=== PATIENT | female | born 1990 | race Asian ===

== ENCOUNTER 2022-04-26 09:34 | Inpatient (IN) ==
[2022-04-26] MEDS ORDERED: LIDOCAINE 1% LOCAL 20 ML VIAL INFIL PRN (09:58)
[2022-04-26] MEDS ORDERED: OXYTOCIN 30 UNITS/500 ML BAG IV PRN ×2 (09:58→10:00)
--- NOTE | 2022-04-26 10:09 | History & Physical Report ---
Date of Service April 26, 2022 Assessment & Plan (1) Spontaneous rupture of amniotic membranes: Plan: 32-year-old G1, P0 at 37 weeks of gestation with spontaneous rupture of membranes, Vital signs stable afebrile, heart rate reassuring, GBS negative, Early labor with mild irregular contractions, Discussed the findings and recommended induction/augmentation of labor at term with rupture of membranes, Discussed oxytocin and how to use it in details. She understood all and agreed with plan. All questions were answered. History of Present Illness Chief Complaint: Leaking fluids Primary Care Provider: NO PCP Patient is a 32-year-old G1, P0 at 37 weeks of gestation who felt a gush of fluid leakage around 7:30 AM followed by repeating fluids on the floor. It has been clear fluids. Patient had contractions yesterday but she does not feel them today. She denies contractions, abdominal pain, vaginal bleeding, fever chills, nausea vomiting, headaches or change in her vision. She reports good movements. Her has been uncomplicated. She started her care here then visited [place] and [place] and came back. GBS is negative Allergies Allergy/AdvReac Type Severity Reaction Status Date / Time No Known Allergies Allergy Verified 10/05/21 13:35 Home Medications Medication Instructions Recorded Confirmed Type prenat.vits,liset,zhv-wehv-oktbg 1 tab PO DAILY 10/05/21 10/05/21 History Patient History Surgical History S/P knee surgery Family History Mother Diabetes Hypertension Grandfather (Maternal) Diabetes Denies family history of Ovarian cancer Prostate cancer Myocardial infarction Breast cancer Colorectal cancer Social History Smoking Status: Never smoker Second Hand Exposure: No; Tobacco Cessation Education Requested by Patient: No Hx Alcohol Use: No Hx Substance Use: No Preferred Language: Mandarin Croatian Communication Ability: Effective Communication Tools: IPad Hearing Ability: Normal Transverse Abdominal Muscle Nurse Required: Yes Beliefs That Will Affect Care: None marital status: Current Living Situation: Spouse Current Living Situation Comment: Lives with Tani current occupational status: employed current occupation: [employer] Feels Safe at Home: Yes Safety Concerns: Feels Safe At This Time Childhood Exposure to Second-Hand Smoke: Yes Diet Comment: warm liquids Dental Care, Regularly: Yes Physical Activity Frequency: 3-4 Times per Week Seatbelt Use: always Sunscreen Use: Yes Gender Identity: Female Review of Systems as per Subjective / HPI Physical Exam Constitutional: WD/WN, vitals as above well developed, well nourished and comfortable Gastrointestinal (Abdomen): normal bowel sounds, soft, nontender, no hepatosplenomegaly (Gravid, [place] 7 lb) Genitourinary: normal external appearance (grossly ruptured, Nitrazine +) OB Exam Abdomen: + vertex Manual OB Exam: + cervical dilation 2 cm, + cervical effacement 30% and + station -2 OB Exam Monitor Tracing: + external FHT monitor used, + external uterine monitor used and + category I Results & Data ([facility]) Vital Signs (Past 12 Hours) Vital Signs Temp Pulse Resp BP 04/26/22 09:57 37 C 75 20 112/65
[2022-04-26 10:38] LABS: Hematocrit (blood only) 34.5 % (34.1-44.9); Hemoglobin 12.1 g/dl (12.0-16.0); Mean Corpuscular Hemoglobin 31.6 pg (25.0-34.0); Mean Corpuscular Hgb Conc 35.1 g/dL (32.0-36.0); Mean Corpuscular Volume 90.1 fL (80.0-100.0); Mean Platelet Volume 9.6 fL (9.4-12.3); Platelet Count 249 K/uL (130-400); RDW Coefficient of Variation 12.1 % (11.5-14.5); RDW Standard Deviation 39.4 fL (36.4-46.3); Red Blood Count 3.83 M/uL (3.93-5.22); White Blood Count 6.98 K/ul (4.8-10.8)
[2022-04-26] MEDS: LACTATED RINGER'S 1,000 ML IV PRN ×3 (11:14→19:12)
[2022-04-26] MEDS ORDERED: OR MISCELLANEOUS MED ONE (14:55)
--- NOTE | 2022-04-26 15:41 | Obstetrical Progress Note ---
Date of Service April 26, 2022 Assessment & Plan Admission and Anticipated Discharge Date Admission Date: April 26, 2022 Subjective Patient is reevaluated. She is sitting on bal. Reviewed her plan. VSS Afebrile FHR categ I [place] ctxs q 1-3 min, pitocin is at 16 miu/min VE; 3-4 cm/ 50%/ -2, small caput Patient desires epidural now. Discussed what to expect. All questions were answered. Continue to monitor closely Results & Data ([facility]) Vital Signs (Past 12 Hours) Vital Signs Temp Pulse Resp BP 04/26/22 11:37 20 04/26/22 14:02 36.8 C 81 20 99/58 L 04/26/22 13:15 36.8 C 88 20 107/56 L 04/26/22 12:56 91 H 109/61 04/26/22 12:41 105 H 113/64 04/26/22 12:27 100 H 114/70 04/26/22 12:12 78 109/58 L 04/26/22 11:56 85 116/63 04/26/22 11:41 91 H 102/59 L 04/26/22 11:26 66 20 104/61 04/26/22 09:57 37 C 75 20 112/65
[2022-04-26] MEDS: INSULIN ASPART PER UNIT SC SCH ×8 (15:45→23:14)
[2022-04-26] MEDS ORDERED: SODIUM CHLORIDE 0.9% INJ 10 ML VIAL ONE (15:50)
[2022-04-26] MEDS ORDERED: ePHEDrine sulfate 50 MG/ML AMP ONE (15:50)
[2022-04-26] MEDS ORDERED: fentaNYL citrate 100 MCG/2 ML VIAL ONE (15:50)
[2022-04-26] MEDS ORDERED: fentaNYL 2MCG/ML ROPIVACAINE 1.25MG/ML 100 ML BAG EPI ONE (15:51)
[2022-04-26] MEDS ORDERED: BUPIVACAINE 0.25% 30 ML VIAL ONE (15:51)
[2022-04-26] MEDS ORDERED: LIDOCAINE 2%/EPINEPHRINE 1:200,000 20 ML SDV ONE (15:51)
--- NOTE | 2022-04-26 16:01 | Anesthesiology Consultation ---
Date of Service April 26, 2022 Assessment & Plan (1) Spontaneous rupture of amniotic membranes: (2) Encounter for pre-operative examination: Chart Review Chart Review: Acceptable Risk for Labor Epidural History Height/Weight Height: 5 ft 3 in Weight: 76.657 kg Allergies Allergy/AdvReac Type Severity Reaction Status Date / Time No Known Allergies Allergy Verified 10/05/21 13:35 Medications Home Medications Medication Instructions Recorded Confirmed Last Taken prenat.vits,liset,uhi-vrbo-tizap 1 tab PO DAILY 10/05/21 04/26/22 04/25/22 08:00 calcium carbonate 600 mg-vitamin 1 tab PO DAILY 04/26/22 04/26/22 04/25/22 08:00 D3 5 mcg (200 unit) tablet cholecalciferol (vitamin D3) 25 25 mcg PO DAILY 04/26/22 04/26/22 04/25/22 08:00 mcg (1,000 unit) capsule (Vitamin D3) insulin NPH isoph U-100 human 100 15 unit subcut HS 04/26/22 04/26/22 04/25/22 23:30 unit/mL (3 mL) subcutaneous pen (Novolin N Flexpen) omega 1-rqz-pei-fish oil 300 1 cap PO DAILY 04/26/22 04/26/22 04/25/22 08:00 mg-1,000 mg capsule (Fish Oil) Active Medications Generic Name Dose Route Start Last Admin Trade Name Freq PRN Reason Stop Dose Admin Lactated Ringer's 1,000 mls @ 150 mls/hr 04/26/22 09:58 04/26/22 15:52 Lr IV 04/28/22 09:57 999 mls/hr .[id number] PRN Administration L&D Protocol Protocol Oxytocin 30 units in 500 mls @ 16 mls/hr 04/26/22 10:00 04/26/22 15:00 Pitocin IV 04/28/22 09:59 0.96 units/hr .Q24H PRN 16 mls/hr Labor Induction/Augmentation Titration Protocol 0.96 UNITS/HR Insulin Aspart 0 units 04/26/22 16:00 04/26/22 15:45 Insulin Aspart Per Unit SC 05/26/22 15:59 4 units Q1H RULA Administration Past Medical History Medical History (Updated 04/26/22 @ 16:01 by Denny Peters MD) Spontaneous rupture of amniotic membranes Past Family History Family History Mother Diabetes Hypertension Grandfather (Maternal) Diabetes Denies family history of Ovarian cancer Prostate cancer Myocardial infarction Breast cancer Colorectal cancer Past Surgical History Surgical History S/P knee surgery Cut knee skiiing Social History Smoking Status: Never smoker Hx Alcohol Use: No Hx Substance Use: No substance use type: does not use Physical Exam Vital Signs Last Vital Signs Temp 36.8 C 04/26/22 14:02 Pulse 81 04/26/22 14:02 Resp 20 04/26/22 14:02 BP 99/58 L 04/26/22 14:02 Testing Laboratory Results 04/26/22 10:10 04/26/22 14:50 POC Glucose 155 H
[2022-04-26] MEDS ORDERED: NALOXONE HCL 0.4 MG/1 ML VIAL/CARP IV PRN (16:40)
[2022-04-26] MEDS ORDERED: ONDANSETRON INJ 2 MG/ML 2 ML VIAL IV PRN (16:40)
[2022-04-26] MEDS ORDERED: NALOXONE HCL 1 MG in SODIUM CHLORIDE 0.9% 1000ML 1,000 ML IV PRN (16:40)
[2022-04-26] MEDS ORDERED: ePHEDrine sulfate 50 MG/ML AMP IV PRN (16:40)
--- NOTE | 2022-04-26 18:30 | Obstetrical Progress Note ---
Date of Service April 26, 2022 Assessment & Plan Admission and Anticipated Discharge Date Admission Date: April 26, 2022 Subjective Patient is reevaluated. She is comfortable now, received epidural for pain. VSS Afebrile FHR categ I VE: 4/ 70%/-1, coned head, minimal change Contractions q 2-4 min Plan to continue to monitor, increase the pitocin as needed, change position with peanut ball. Results & Data ([facility]) Vital Signs (Past 12 Hours) Vital Signs Temp Pulse Resp BP Pulse Ox 04/26/22 11:37 20 04/26/22 18:25 65 99 04/26/22 18:23 62 98/63 L 04/26/22 18:20 66 99 04/26/22 18:15 77 100 04/26/22 18:10 72 100/65 99 04/26/22 18:05 61 99 04/26/22 18:00 68 99 04/26/22 17:55 36.8 C 78 20 99 04/26/22 17:53 80 99/51 L 04/26/22 17:50 59 L 98 04/26/22 17:45 57 L 99 04/26/22 17:40 73 98 04/26/22 17:39 74 106/56 L 04/26/22 17:35 71 98 04/26/22 17:30 66 98 04/26/22 17:25 78 97 04/26/22 17:20 70 98 04/26/22 17:15 79 97 04/26/22 17:11 66 106/55 L 04/26/22 17:10 64 98 04/26/22 17:05 76 98 04/26/22 17:00 68 96 04/26/22 16:55 69 97 04/26/22 16:53 70 101/57 L 04/26/22 16:50 76 97 04/26/22 16:51 73 95/51 L 04/26/22 16:49 74 100/59 L 04/26/22 16:47 73 97/54 L 04/26/22 16:45 98 04/26/22 16:45 73 04/26/22 16:45 76 95/55 L 04/26/22 16:43 64 94/55 L 04/26/22 16:41 75 100/59 L 04/26/22 16:40 73 98 04/26/22 16:39 69 99/58 L 04/26/22 16:37 64 98/58 L 04/26/22 16:35 65 16 99/57 L 98 04/26/22 16:33 65 125/58 L 04/26/22 16:32 76 132/70 04/26/22 16:30 79 97 04/26/22 16:25 80 99 04/26/22 16:20 71 99 04/26/22 16:00 36.9 C 75 20 105/71 04/26/22 14:02 36.8 C 81 20 99/58 L 04/26/22 13:15 36.8 C 88 20 107/56 L 04/26/22 12:56 91 H 109/61 04/26/22 12:41 105 H 113/64 04/26/22 12:27 100 H 114/70 04/26/22 12:12 78 109/58 L 04/26/22 11:56 85 116/63 04/26/22 11:41 91 H 102/59 L 04/26/22 11:26 66 20 104/61 04/26/22 09:57 37 C 75 20 112/65
[2022-04-26] MEDS: ceFAZolin 2000MG 2,000 MG/15 ML SYR IV SCH (18:49)
[2022-04-26] MEDS: CLINDAMYCIN/D5W 900 MG/50 ML BAG IV SCH (19:38)
--- NOTE | 2022-04-26 20:40 | Obstetrical Progress Note ---
Date of Service April 26, 2022 Assessment & Plan Admission and Anticipated Discharge Date Admission Date: April 26, 2022 Subjective Patient is related. heart rate had deceleration and recovered to regular baseline with good Ativan strips after position change. She is still comfortable, no pain or pressure. Vaginal exam, cervix is 5 cm dilated, 70% effaced head is at -1 station with cone shape, suspected OP, IUPC is placed on Bedside ultrasound performed direct OP, baby is back is on the mother's posterior uterus, Will change position to left lateral side and peanut ball, Discussed the findings with the patient, All questions were answered, Continue to monitor. Results & Data ([facility]) Vital Signs (Past 12 Hours) Vital Signs Temp Pulse Resp BP Pulse Ox 04/26/22 11:37 20 04/26/22 20:35 78 98 04/26/22 20:30 68 98 04/26/22 20:25 73 99 04/26/22 20:23 64 109/57 L 04/26/22 20:20 63 97 04/26/22 20:15 68 98 04/26/22 20:10 86 99 04/26/22 20:09 71 109/71 04/26/22 20:00 18 04/26/22 20:00 18 04/26/22 20:05 70 99 04/26/22 20:00 76 99 04/26/22 19:55 70 99 04/26/22 19:54 69 101/57 L 04/26/22 19:50 65 98 04/26/22 19:45 75 99 04/26/22 19:40 66 98 04/26/22 19:39 60 100/57 L 04/26/22 19:37 61 111/67 04/26/22 19:35 64 98 04/26/22 19:30 70 97 04/26/22 19:29 56 L 95/53 L 04/26/22 19:25 69 94/53 L 99 04/26/22 19:20 66 99 04/26/22 19:15 36.7 C 67 18 99 04/26/22 19:10 77 93/56 L 100 04/26/22 19:05 70 99 04/26/22 19:00 65 99 04/26/22 18:55 62 100 04/26/22 18:53 70 104/58 L 04/26/22 18:50 68 100 04/26/22 18:45 71 99 04/26/22 18:40 66 99 04/26/22 18:39 64 101/56 L 04/26/22 18:35 36.7 C 68 20 99 04/26/22 18:30 68 100 04/26/22 18:25 65 99 04/26/22 18:23 62 98/63 L 04/26/22 18:20 66 99 04/26/22 18:15 77 100 04/26/22 18:10 72 100/65 99 04/26/22 18:05 61 99 04/26/22 18:00 68 99 04/26/22 17:55 36.8 C 78 20 99 04/26/22 17:53 80 99/51 L 04/26/22 17:50 59 L 98 04/26/22 17:45 57 L 99 04/26/22 17:40 73 98 04/26/22 17:39 74 106/56 L 04/26/22 17:35 71 98 04/26/22 17:30 66 98 04/26/22 17:25 78 97 04/26/22 17:20 70 98 04/26/22 17:15 79 97 04/26/22 17:11 66 106/55 L 04/26/22 17:10 64 98 04/26/22 17:05 76 98 04/26/22 17:00 68 96 04/26/22 16:55 69 97 04/26/22 16:53 70 101/57 L 04/26/22 16:50 76 97 04/26/22 16:51 73 95/51 L 04/26/22 16:49 74 100/59 L 04/26/22 16:47 73 97/54 L 04/26/22 16:45 98 04/26/22 16:45 73 04/26/22 16:45 76 95/55 L 04/26/22 16:43 64 94/55 L 04/26/22 16:41 75 100/59 L 04/26/22 16:40 73 98 04/26/22 16:39 69 99/58 L 04/26/22 16:37 64 98/58 L 04/26/22 16:35 65 16 99/57 L 98 04/26/22 16:33 65 125/58 L 04/26/22 16:32 76 132/70 04/26/22 16:30 79 97 04/26/22 16:25 80 99 04/26/22 16:20 71 99 04/26/22 16:00 36.9 C 75 20 105/71 04/26/22 14:02 36.8 C 81 20 99/58 L 04/26/22 13:15 36.8 C 88 20 107/56 L 04/26/22 12:56 91 H 109/61 04/26/22 12:41 105 H 113/64 04/26/22 12:27 100 H 114/70 04/26/22 12:12 78 109/58 L 04/26/22 11:56 85 116/63 04/26/22 11:41 91 H 102/59 L 04/26/22 11:26 66 20 104/61 04/26/22 09:57 37 C 75 20 112/65
--- NOTE | 2022-04-26 22:28 | Obstetrical Progress Note ---
Date of Service April 26, 2022 Assessment & Plan Admission and Anticipated Discharge Date Admission Date: April 26, 2022 Subjective Patient has bloody show VSS Afebrile On IV Cefazolin and Clindamycin VE; 6/ 80%/ 0, coned head, FHR categ I Ctxs q 2-3 min, Pitocin is at 28 miu/ min IUPC is removed Protracted labor with reassuring maternal and status Continue to monitor closely Results & Data ([facility]) Vital Signs (Past 12 Hours) Vital Signs Temp Pulse Resp BP Pulse Ox 04/26/22 11:37 20 04/26/22 22:25 66 114/64 04/26/22 22:20 68 99 04/26/22 22:15 74 98 04/26/22 22:10 76 99 04/26/22 22:09 72 96/53 L 04/26/22 22:05 66 99 04/26/22 22:00 75 99 04/26/22 21:55 67 100 04/26/22 21:53 66 103/53 L 04/26/22 21:50 76 100 04/26/22 21:45 71 99 04/26/22 21:40 66 99 04/26/22 21:41 70 101/56 L 04/26/22 21:35 73 100 04/26/22 21:30 76 98 04/26/22 21:25 68 108/61 98 04/26/22 21:20 68 99 04/26/22 21:15 73 99 04/26/22 21:10 72 98 04/26/22 21:09 69 98/54 L 04/26/22 21:05 37.1 C 67 18 99 04/26/22 21:00 76 99 04/26/22 20:55 75 100 04/26/22 20:53 94/61 L 04/26/22 20:00 18 04/26/22 20:00 18 04/26/22 20:50 73 99 04/26/22 20:45 84 98 04/26/22 20:40 99 04/26/22 20:40 71 04/26/22 20:40 71 109/59 L 04/26/22 20:35 78 98 04/26/22 20:30 68 98 04/26/22 20:25 73 99 04/26/22 20:23 64 109/57 L 04/26/22 20:20 63 97 04/26/22 20:15 68 98 04/26/22 20:10 86 99 04/26/22 20:09 71 109/71 04/26/22 20:00 18 04/26/22 20:00 18 04/26/22 20:05 70 99 04/26/22 20:00 76 99 04/26/22 19:55 70 99 04/26/22 19:54 69 101/57 L 04/26/22 19:50 65 98 04/26/22 19:45 75 99 04/26/22 19:40 66 98 04/26/22 19:39 60 100/57 L 04/26/22 19:37 61 111/67 04/26/22 19:35 64 98 04/26/22 19:30 70 97 04/26/22 19:29 56 L 95/53 L 04/26/22 19:25 69 94/53 L 99 04/26/22 19:20 66 99 04/26/22 19:15 36.7 C 67 18 99 04/26/22 19:10 77 93/56 L 100 04/26/22 19:05 70 99 04/26/22 19:00 65 99 04/26/22 18:55 62 100 04/26/22 18:53 70 104/58 L 04/26/22 18:50 68 100 04/26/22 18:45 71 99 04/26/22 18:40 66 99 04/26/22 18:39 64 101/56 L 04/26/22 18:35 36.7 C 68 20 99 04/26/22 18:30 68 100 04/26/22 18:25 65 99 04/26/22 18:23 62 98/63 L 04/26/22 18:20 66 99 04/26/22 18:15 77 100 04/26/22 18:10 72 100/65 99 04/26/22 18:05 61 99 04/26/22 18:00 68 99 04/26/22 17:55 36.8 C 78 20 99 04/26/22 17:53 80 99/51 L 04/26/22 17:50 59 L 98 04/26/22 17:45 57 L 99 04/26/22 17:40 73 98 04/26/22 17:39 74 106/56 L 04/26/22 17:35 71 98 04/26/22 17:30 66 98 04/26/22 17:25 78 97 04/26/22 17:20 70 98 04/26/22 17:15 79 97 04/26/22 17:11 66 106/55 L 04/26/22 17:10 64 98 04/26/22 17:05 76 98 04/26/22 17:00 68 96 04/26/22 16:55 69 97 04/26/22 16:53 70 101/57 L 04/26/22 16:50 76 97 04/26/22 16:51 73 95/51 L 04/26/22 16:49 74 100/59 L 04/26/22 16:47 73 97/54 L 04/26/22 16:45 98 04/26/22 16:45 73 04/26/22 16:45 76 95/55 L 04/26/22 16:43 64 94/55 L 04/26/22 16:41 75 100/59 L 04/26/22 16:40 73 98 04/26/22 16:39 69 99/58 L 04/26/22 16:37 64 98/58 L 04/26/22 16:35 65 16 99/57 L 98 04/26/22 16:33 65 125/58 L 04/26/22 16:32 76 132/70 04/26/22 16:30 79 97 04/26/22 16:25 80 99 04/26/22 16:20 71 99 04/26/22 16:00 36.9 C 75 20 105/71 04/26/22 14:02 36.8 C 81 20 99/58 L 04/26/22 13:15 36.8 C 88 20 107/56 L 04/26/22 12:56 91 H 109/61 04/26/22 12:41 105 H 113/64 04/26/22 12:27 100 H 114/70 04/26/22 12:12 78 109/58 L 04/26/22 11:56 85 116/63 04/26/22 11:41 91 H 102/59 L 04/26/22 11:26 66 20 104/61
[2022-04-27] MEDS: INSULIN ASPART PER UNIT SC SCH ×15 (00:21→16:33)
[2022-04-27] MEDS ORDERED: OR MISCELLANEOUS MED ONE (01:07)
[2022-04-27] MEDS ORDERED: OXYTOCIN 30 UNITS/500 ML BAG IV PRN ×2 (01:12→15:47)
--- NOTE | 2022-04-27 01:12 | Obstetrical Progress Note ---
Date of Service April 27, 2022 Assessment & Plan Admission and Anticipated Discharge Date Admission Date: April 26, 2022 Subjective Patient is reevaluated. She is still comfortable does not have any pain, discomfort, nor pressure. She and her showed me her work plan second time, printed from computer this time. Directed avoid delivery if possible, avoid episiotomy, delayed cord clamping for 10 minutes, ocal-rs-ffxr contact soon after delivery, and multiple references for /pediatric care. Vital signs stable afebrile, heart rate category 1 with occasional early D cells with quick recovery and moderate variability and good accelerations. [place] with contractions every 1 to 2 minutes, Vaginal exam, cervix is 7 cm dilated, 80% effaced and head is coned but it is +1 station, still OP. Oxytocin is at 28 mIU/min. Patient has slow progress, protracted labor, reassuring heart rate and maternal status, Discussed option of giving uterine muscle rest with holding off the oxytocin for about an hour, and then restart from the beginning. Patient agrees and will desires to rest and sleep. All questions were answered. Results & Data ([facility]) Vital Signs (Past 12 Hours) Vital Signs Temp Pulse Resp BP Pulse Ox 04/27/22 01:05 67 98 04/27/22 01:00 77 98 04/27/22 00:55 78 96 04/27/22 00:54 85 131/62 04/27/22 00:50 71 97 04/27/22 00:45 75 97 04/27/22 00:40 77 97 04/27/22 00:38 75 126/67 04/27/22 00:35 80 97 04/27/22 00:30 74 16 97 04/27/22 00:25 75 132/71 98 04/27/22 00:20 83 98 04/27/22 00:15 71 99 04/27/22 00:10 79 96/52 L 98 04/27/22 00:05 76 98 04/27/22 00:00 97 04/27/22 00:00 78 04/27/22 00:01 76 87/51 L 04/27/22 00:00 83 85/48 L 04/26/22 23:55 80 98 04/26/22 23:53 80 81/45 L 04/26/22 23:50 72 97 04/26/22 23:45 72 98 04/26/22 23:40 76 97/53 L 98 04/26/22 23:35 68 98 04/26/22 23:30 78 18 98 04/26/22 23:25 79 98 04/26/22 23:26 80 153/58 H 04/26/22 23:20 89 98 04/26/22 23:15 75 98 04/26/22 23:10 18 04/26/22 23:10 37.1 C 18 04/26/22 23:10 98 04/26/22 23:10 76 04/26/22 23:10 78 120/78 04/26/22 23:05 76 98 04/26/22 23:00 79 98 04/26/22 22:55 95 04/26/22 22:55 87 04/26/22 22:55 89 118/64 04/26/22 22:50 79 98 04/26/22 22:45 73 99 04/26/22 22:40 68 99 04/26/22 22:39 69 110/60 04/26/22 22:35 78 98 04/26/22 22:00 18 04/26/22 22:00 18 04/26/22 22:30 65 98 04/26/22 22:25 99 04/26/22 22:25 80 04/26/22 22:25 66 114/64 04/26/22 22:20 68 99 04/26/22 22:15 74 98 04/26/22 22:10 76 99 04/26/22 22:09 72 96/53 L 04/26/22 22:05 66 99 04/26/22 22:00 75 99 04/26/22 21:55 67 100 04/26/22 21:53 66 103/53 L 04/26/22 21:50 76 100 04/26/22 21:45 71 99 04/26/22 21:40 66 99 04/26/22 21:41 70 101/56 L 04/26/22 21:35 73 100 04/26/22 21:30 76 98 04/26/22 21:25 68 108/61 98 04/26/22 21:20 68 99 04/26/22 21:15 73 99 04/26/22 21:10 72 98 04/26/22 21:09 69 98/54 L 04/26/22 21:05 37.1 C 67 18 99 04/26/22 21:00 76 99 04/26/22 20:55 75 100 04/26/22 20:53 94/61 L 04/26/22 20:00 18 04/26/22 20:00 18 04/26/22 20:50 73 99 04/26/22 20:45 84 98 04/26/22 20:40 99 04/26/22 20:40 71 04/26/22 20:40 71 109/59 L 04/26/22 20:35 78 98 04/26/22 20:30 68 98 04/26/22 20:25 73 99 04/26/22 20:23 64 109/57 L 04/26/22 20:20 63 97 04/26/22 20:15 68 98 04/26/22 20:10 86 99 04/26/22 20:09 71 109/71 04/26/22 20:00 18 04/26/22 20:00 18 04/26/22 20:05 70 99 04/26/22 20:00 76 99 04/26/22 19:55 70 99 04/26/22 19:54 69 101/57 L 04/26/22 19:50 65 98 04/26/22 19:45 75 99 04/26/22 19:40 66 98 04/26/22 19:39 60 100/57 L 04/26/22 19:37 61 111/67 04/26/22 19:35 64 98 04/26/22 19:30 70 97 04/26/22 19:29 56 L 95/53 L 04/26/22 19:25 69 94/53 L 99 04/26/22 19:20 66 99 04/26/22 19:15 36.7 C 67 18 99 04/26/22 19:10 77 93/56 L 100 04/26/22 19:05 70 99 04/26/22 19:00 65 99 04/26/22 18:55 62 100 04/26/22 18:53 70 104/58 L 04/26/22 18:50 68 100 04/26/22 18:45 71 99 04/26/22 18:40 66 99 04/26/22 18:39 64 101/56 L 04/26/22 18:35 36.7 C 68 20 99 04/26/22 18:30 68 100 04/26/22 18:25 65 99 04/26/22 18:23 62 98/63 L 04/26/22 18:20 66 99 04/26/22 18:15 77 100 04/26/22 18:10 72 100/65 99 04/26/22 18:05 61 99 04/26/22 18:00 68 99 04/26/22 17:55 36.8 C 78 20 99 04/26/22 17:53 80 99/51 L 04/26/22 17:50 59 L 98 04/26/22 17:45 57 L 99 04/26/22 17:40 73 98 04/26/22 17:39 74 106/56 L 04/26/22 17:35 71 98 04/26/22 17:30 66 98 04/26/22 17:25 78 97 04/26/22 17:20 70 98 04/26/22 17:15 79 97 04/26/22 17:11 66 106/55 L 04/26/22 17:10 64 98 04/26/22 17:05 76 98 04/26/22 17:00 68 96 04/26/22 16:55 69 97 04/26/22 16:53 70 101/57 L 04/26/22 16:50 76 97 04/26/22 16:51 73 95/51 L 04/26/22 16:49 74 100/59 L 04/26/22 16:47 73 97/54 L 04/26/22 16:45 98 04/26/22 16:45 73 04/26/22 16:45 76 95/55 L 04/26/22 16:43 64 94/55 L 04/26/22 16:41 75 100/59 L 04/26/22 16:40 73 98 04/26/22 16:39 69 99/58 L 04/26/22 16:37 64 98/58 L 04/26/22 16:35 65 16 99/57 L 98 04/26/22 16:33 65 125/58 L 04/26/22 16:32 76 132/70 04/26/22 16:30 79 97 04/26/22 16:25 80 99 04/26/22 16:20 71 99 04/26/22 16:00 36.9 C 75 20 105/71 04/26/22 14:02 36.8 C 81 20 99/58 L 04/26/22 13:15 36.8 C 88 20 107/56 L
[2022-04-27] MEDS: fentaNYL 2MCG/ML ROPIVACAINE 1.25MG/ML 100 ML BAG EPI PRN ×2 (01:59→09:07)
[2022-04-27] MEDS: LACTATED RINGER'S 1,000 ML IV PRN ×2 (02:03→09:30)
[2022-04-27] MEDS: ceFAZolin 2000MG 2,000 MG/15 ML SYR IV SCH ×2 (03:03→11:04)
[2022-04-27] MEDS: CLINDAMYCIN/D5W 900 MG/50 ML BAG IV SCH ×2 (03:03→11:24)
--- NOTE | 2022-04-27 10:17 | Labor Progress Brief Note ---
Date of Service April 27, 2022 Assessment & Plan Admission and Anticipated Discharge Date Admission Date: April 26, 2022 Physical Exam Genitourinary: Manual OB Exam: + cervical dilation 9 cm, + cervical effacement 100% and + station 0 OB Exam Monitor Tracing: + external FHT monitor used, + external uterine monitor used, + category I and + normal FHT variability Results & Data ([facility]) Vital Signs (Past 12 Hours) Vital Signs Temp Pulse Resp BP Pulse Ox 04/27/22 10:10 79 97 04/27/22 10:08 71 105/62 04/27/22 10:05 72 98 04/27/22 10:00 79 97 04/27/22 09:55 80 97 04/27/22 09:53 73 20 99/57 L 04/27/22 09:50 82 96 04/27/22 09:45 80 97 04/27/22 09:40 77 97 04/27/22 09:39 75 93/55 L 04/27/22 09:35 71 97 04/27/22 09:30 70 96 04/27/22 09:25 76 98 04/27/22 09:24 75 98/56 L 04/27/22 09:20 70 98 04/27/22 09:15 70 97 04/27/22 09:10 67 97 04/27/22 09:08 66 100/56 L 04/27/22 09:05 70 97 04/27/22 09:00 37 C 20 04/27/22 09:00 68 97 04/27/22 08:55 80 97 04/27/22 08:54 78 97/51 L 04/27/22 08:50 69 95 04/27/22 08:45 70 95 04/27/22 08:40 95 04/27/22 08:40 73 04/27/22 08:40 68 95/55 L 04/27/22 08:35 67 95 04/27/22 08:30 67 96 04/27/22 08:25 98 04/27/22 08:25 69 04/27/22 08:25 74 115/67 04/27/22 08:20 80 98 04/27/22 08:15 80 98 04/27/22 08:10 65 98 04/27/22 08:08 68 90/51 L 04/27/22 08:05 80 97 04/27/22 08:00 81 96 04/27/22 07:55 75 96 04/27/22 07:54 69 97/54 L 04/27/22 07:50 71 96 04/27/22 07:45 78 96 04/27/22 07:40 68 96 04/27/22 07:39 65 107/62 04/27/22 07:35 71 97 04/27/22 07:30 77 96 04/27/22 07:25 71 97 04/27/22 07:23 69 101/57 L 04/27/22 07:20 65 97 04/27/22 07:15 84 98 04/27/22 07:10 37.1 C 70 20 97 04/27/22 07:09 68 106/55 L 04/27/22 07:05 69 98 04/27/22 07:00 71 97 04/27/22 06:55 96 04/27/22 06:55 67 04/27/22 06:55 68 109/64 04/27/22 06:53 65 106/60 04/27/22 06:50 68 98 04/27/22 06:45 83 97 04/27/22 06:40 70 98 04/27/22 06:39 74 106/56 L 04/27/22 06:35 80 98 04/27/22 06:30 68 98 04/27/22 06:25 72 97 04/27/22 06:24 77 91/51 L 04/27/22 06:20 76 97 04/27/22 06:15 80 97 04/27/22 06:10 98 04/27/22 06:10 73 04/27/22 06:11 74 104/54 L 04/27/22 06:10 74 86/51 L 04/27/22 06:06 18 04/27/22 06:06 18 04/27/22 06:05 87 98 04/27/22 06:00 78 97 04/27/22 05:55 84 97 04/27/22 05:54 81 110/55 L 04/27/22 05:50 80 97 04/27/22 05:45 75 98 04/27/22 05:40 75 97 04/27/22 05:38 75 98/57 L 04/27/22 05:35 70 96 04/27/22 05:30 72 95 04/27/22 05:25 67 96 04/27/22 05:24 69 104/56 L 04/27/22 05:20 37.2 C 91 H 18 96 04/27/22 05:15 79 96 04/27/22 05:10 75 100/55 L 96 04/27/22 04:20 18 04/27/22 04:20 18 04/27/22 05:05 95 04/27/22 05:05 77 04/27/22 05:05 75 94 04/27/22 05:00 73 18 95 04/27/22 04:55 75 96 04/27/22 04:54 69 102/59 L 04/27/22 04:50 75 95 04/27/22 04:45 71 96 04/27/22 04:40 73 97 04/27/22 04:38 74 103/55 L 04/27/22 04:35 75 96 04/27/22 04:30 70 97 04/27/22 04:25 77 97 04/27/22 04:20 79 18 98 04/27/22 04:15 82 96 04/27/22 04:10 80 96 04/27/22 04:08 75 103/57 L 04/27/22 04:05 73 97 04/27/22 04:00 77 96 04/27/22 03:55 78 96 04/27/22 03:53 82 95/56 L 04/27/22 03:50 74 96 04/27/22 03:45 89 98 04/27/22 03:40 77 98 04/27/22 03:39 75 105/60 04/27/22 03:35 76 99 04/27/22 03:30 79 16 98 04/27/22 03:25 82 99 04/27/22 03:23 82 100/56 L 04/27/22 03:20 83 99 04/27/22 03:15 94 H 98 04/27/22 03:10 68 101/56 L 99 04/27/22 03:05 83 99 04/27/22 03:00 37.1 C 74 18 97 04/27/22 02:55 72 98 04/27/22 02:54 84 101/59 L 04/27/22 02:50 75 97 04/27/22 02:45 72 98 04/27/22 02:40 73 97 09/09/22 02:38 75 95/57 L 04/27/22 02:35 69 98 04/27/22 02:30 83 18 98 04/27/22 02:25 74 98 04/27/22 02:23 73 107/60 04/27/22 02:20 75 97 04/27/22 02:15 73 98 04/27/22 02:10 75 97 04/27/22 02:08 76 109/61 04/27/22 02:05 75 99 04/27/22 02:00 73 18 98 04/27/22 01:55 97 H 97 04/27/22 01:53 71 101/58 L 04/27/22 01:50 72 97 04/27/22 01:45 72 96 04/27/22 01:40 98 04/27/22 01:40 67 04/27/22 01:40 68 95/54 L 04/27/22 01:35 69 96 04/27/22 01:30 76 18 97 04/27/22 01:31 71 107/59 L 04/27/22 01:25 67 96 04/27/22 01:20 74 98 04/27/22 01:15 68 98 04/27/22 01:10 67 98 04/27/22 01:05 67 98 04/27/22 01:00 37.0 C 77 18 98 04/27/22 00:55 78 96 04/27/22 00:54 85 131/62 04/27/22 00:50 71 97 04/27/22 00:45 75 97 04/27/22 00:40 77 97 04/27/22 00:38 75 126/67 04/27/22 00:35 80 97 04/27/22 00:30 74 16 97 04/27/22 00:25 75 132/71 98 04/27/22 00:20 83 98 04/27/22 00:15 71 99 04/27/22 00:10 79 96/52 L 98 04/27/22 00:05 76 98 04/27/22 00:00 97 04/27/22 00:00 78 04/27/22 00:01 76 87/51 L 04/27/22 00:00 83 85/48 L 04/26/22 23:55 80 98 04/26/22 23:53 80 81/45 L 04/26/22 23:50 72 97 04/26/22 23:45 72 98 04/26/22 23:40 76 97/53 L 98 04/26/22 23:35 68 98 04/26/22 23:30 78 18 98 04/26/22 23:25 79 98 04/26/22 23:26 80 153/58 H 04/26/22 23:20 89 98 04/26/22 23:15 75 98 04/26/22 23:10 18 04/26/22 23:10 37.1 C 18 04/26/22 23:10 98 04/26/22 23:10 76 04/26/22 23:10 78 120/78 04/26/22 23:05 76 98 04/26/22 23:00 79 98 04/26/22 22:55 95 04/26/22 22:55 87 04/26/22 22:55 89 118/64 04/26/22 22:50 79 98 04/26/22 22:45 73 99 04/26/22 22:40 68 99 04/26/22 22:39 69 110/60 04/26/22 22:35 78 98 04/26/22 22:30 65 98 04/26/22 22:25 99 04/26/22 22:25 80 04/26/22 22:25 66 114/64 04/26/22 22:20 68 99
[2022-04-27 11:06] LABS: HBSAG NON-REACTIVE (NON-REACTIVE)
--- NOTE | 2022-04-27 13:46 | Labor Progress Brief Note ---
Date of Service April 27, 2022 Assessment & Plan Admission and Anticipated Discharge Date Admission Date: April 26, 2022 Physical Exam Genitourinary: Manual OB Exam: + cervical dilation 10 cm, + cervical effacement 100% and + station 0 OB Exam Monitor Tracing: + external FHT monitor used, + external uterine monitor used and + category I Results & Data ([facility]) Vital Signs (Past 12 Hours) Vital Signs Temp Pulse Resp BP Pulse Ox 04/27/22 12:09 37.1 C 20 04/27/22 13:44 90 87 L 04/27/22 13:40 82 98 04/27/22 13:35 89 98 04/27/22 13:34 77 106/57 L 04/27/22 13:30 87 97 04/27/22 13:25 75 98 04/27/22 13:20 81 97 04/27/22 13:19 36.8 C 81 16 103/55 L 04/27/22 13:15 83 98 04/27/22 13:10 90 98 04/27/22 13:05 83 106/55 L 98 04/27/22 13:00 77 96 04/27/22 12:55 77 97 04/27/22 12:50 72 98 04/27/22 12:51 76 90/60 L 04/27/22 12:45 69 97 04/27/22 12:40 69 98 04/27/22 12:35 73 97 04/27/22 12:30 68 97 04/27/22 12:26 85 100/57 L 04/27/22 12:25 84 97 04/27/22 12:20 92 H 98 04/27/22 12:15 81 97 04/27/22 12:10 87 96 04/27/22 12:05 83 97 04/27/22 12:00 72 95 04/27/22 11:59 76 94 04/27/22 11:55 76 95 04/27/22 11:53 73 109/56 L 04/27/22 11:50 74 95 04/27/22 11:45 82 96 04/27/22 11:40 71 96 04/27/22 11:39 71 109/57 L 04/27/22 11:35 75 95 04/27/22 11:30 73 96 04/27/22 11:25 73 95 04/27/22 11:23 68 110/57 L 04/27/22 11:20 71 96 04/27/22 11:15 74 96 04/27/22 11:10 72 96 04/27/22 11:09 68 107/58 L 04/27/22 11:05 70 95 04/27/22 11:00 70 96 04/27/22 10:55 73 95 04/27/22 10:53 73 101/58 L 04/27/22 10:50 75 96 04/27/22 10:45 68 96 04/27/22 10:40 73 96 04/27/22 10:39 65 101/58 L 04/27/22 10:35 71 96 04/27/22 10:30 71 96 04/27/22 10:25 73 96 04/27/22 10:23 67 105/58 L 04/27/22 10:20 67 97 04/27/22 10:15 69 98 04/27/22 10:10 79 97 04/27/22 10:08 71 105/62 04/27/22 10:05 72 98 04/27/22 10:00 79 97 04/27/22 09:55 80 97 04/27/22 09:53 73 20 99/57 L 04/27/22 09:50 82 96 04/27/22 09:45 80 97 04/27/22 09:40 77 97 04/27/22 09:39 75 93/55 L 04/27/22 09:35 71 97 04/27/22 09:30 70 96 04/27/22 09:25 76 98 04/27/22 09:24 75 98/56 L 04/27/22 09:20 70 98 04/27/22 09:15 70 97 04/27/22 09:10 67 97 04/27/22 09:08 66 100/56 L 04/27/22 09:05 70 97 04/27/22 09:00 37 C 20 04/27/22 09:00 68 97 04/27/22 08:55 80 97 04/27/22 08:54 78 97/51 L 04/27/22 08:50 69 95 04/27/22 08:45 70 95 04/27/22 08:40 95 04/27/22 08:40 73 04/27/22 08:40 68 95/55 L 04/27/22 08:35 67 95 04/27/22 08:30 67 96 04/27/22 08:25 98 04/27/22 08:25 69 04/27/22 08:25 74 115/67 04/27/22 08:20 80 98 04/27/22 08:15 80 98 04/27/22 08:10 65 98 04/27/22 08:08 68 90/51 L 04/27/22 08:05 80 97 04/27/22 08:00 81 96 04/27/22 07:55 75 96 04/27/22 07:54 69 97/54 L 04/27/22 07:50 71 96 04/27/22 07:45 78 96 04/27/22 07:40 68 96 04/27/22 07:39 65 107/62 04/27/22 07:35 71 97 04/27/22 07:30 77 96 04/27/22 07:25 71 97 04/27/22 07:23 69 101/57 L 04/27/22 07:20 65 97 04/27/22 07:15 84 98 04/27/22 07:10 37.1 C 70 20 97 04/27/22 07:09 68 106/55 L 04/27/22 07:05 69 98 04/27/22 07:00 71 97 04/27/22 06:55 96 04/27/22 06:55 67 04/27/22 06:55 68 109/64 04/27/22 06:53 65 106/60 04/27/22 06:50 68 98 04/27/22 06:45 83 97 04/27/22 06:40 70 98 04/27/22 06:39 74 106/56 L 04/27/22 06:35 80 98 04/27/22 06:30 68 98 04/27/22 06:25 72 97 04/27/22 06:24 77 91/51 L 04/27/22 06:20 76 97 04/27/22 06:15 80 97 04/27/22 06:10 98 04/27/22 06:10 73 04/27/22 06:11 74 104/54 L 04/27/22 06:10 74 86/51 L 04/27/22 06:06 18 04/27/22 06:06 18 04/27/22 06:05 87 98 04/27/22 06:00 78 97 04/27/22 05:55 84 97 04/27/22 05:54 81 110/55 L 04/27/22 05:50 80 97 04/27/22 05:45 75 98 04/27/22 05:40 75 97 04/27/22 05:38 75 98/57 L 04/27/22 05:35 70 96 04/27/22 05:30 72 95 04/27/22 05:25 67 96 04/27/22 05:24 69 104/56 L 04/27/22 05:20 37.2 C 91 H 18 96 04/27/22 05:15 79 96 04/27/22 05:10 75 100/55 L 96 04/27/22 04:20 18 04/27/22 04:20 18 04/27/22 05:05 95 04/27/22 05:05 77 04/27/22 05:05 75 94 04/27/22 05:00 73 18 95 04/27/22 04:55 75 96 04/27/22 04:54 69 102/59 L 04/27/22 04:50 75 95 04/27/22 04:45 71 96 04/27/22 04:40 73 97 04/27/22 04:38 74 103/55 L 04/27/22 04:35 75 96 04/27/22 04:30 70 97 04/27/22 04:25 77 97 04/27/22 04:20 79 18 98 04/27/22 04:15 82 96 04/27/22 04:10 80 96 04/27/22 04:08 75 103/57 L 04/27/22 04:05 73 97 04/27/22 04:00 77 96 04/27/22 03:55 78 96 04/27/22 03:53 82 95/56 L 04/27/22 03:50 74 96 04/27/22 03:45 89 98 04/27/22 03:40 77 98 04/27/22 03:39 75 105/60 04/27/22 03:35 76 99 04/27/22 03:30 79 16 98 04/27/22 03:25 82 99 04/27/22 03:23 82 100/56 L 04/27/22 03:20 83 99 04/27/22 03:15 94 H 98 04/27/22 03:10 68 101/56 L 99 04/27/22 03:05 83 99 04/27/22 03:00 37.1 C 74 18 97 04/27/22 02:55 72 98 04/27/22 02:54 84 101/59 L 04/27/22 02:50 75 97 04/27/22 02:45 72 98 04/27/22 02:40 73 97 04/27/22 02:38 75 95/57 L 04/27/22 02:35 69 98 04/27/22 02:30 83 18 98 04/27/22 02:25 74 98 04/27/22 02:23 73 107/60 04/27/22 02:20 75 97 04/27/22 02:15 73 98 04/27/22 02:10 75 97 04/27/22 02:08 76 109/61 04/27/22 02:05 75 99 04/27/22 02:00 73 18 98 04/27/22 01:55 97 H 97 04/27/22 01:53 71 101/58 L 04/27/22 01:50 72 97
[2022-04-27] MEDS ORDERED: METHYLERGONOVINE MALEATE 0.2 MG/ML AMP IM ONE (15:47)
[2022-04-27] MEDS ORDERED: DIPHTHERIA/TETANUS/PERTUSSIS 0.5 ML SYR/VIAL IM ONE (15:47)
[2022-04-27] MEDS ORDERED: bisacodyL 10 MG SUPP PR PRN (15:47)
[2022-04-27] MEDS ORDERED: HYDROCORTISONE ACETATE 25 MG SUPP PR PRN (15:47)
--- NOTE | 2022-04-27 15:52 | Delivery Summary ---
Vaginal Delivery Summary Date of Service April 27, 2022 Vaginal Delivery Summary Delivery Note live male over intact perineum with Apgars and weight pending. Cord blood obtained followed by length of cord for full ABG's. Placenta delivered spontaneously and intact. No tears. small amount of uterine atony post- delivery and 1 dose of Methergine given IM. Uterus firm below U following Methergine and fundal massage. EBL 400 ml. Final sponge and instrument count are correct. Mom stable and baby to nursery for observation
[2022-04-27] MEDS ORDERED: IBUPROFEN 600 MG TAB PO ONE (15:53)
[2022-04-27 16:08] LABS: CO2 Cord Arterial Blood 37 mmHg (39.1-73.5); HCO3 Cord Arterial Blood 19 mmol/L (19.7-28.5); Oxygen Sat Cord Arterial Blood 76.3 % (<60); PO2 Cord Arterial Blood 36 mmHg (4.1-31.7); pH Cord Arterial Blood 7.31 (7.1-7.38)
[2022-04-27 16:09] LABS: Cord Venous Blood HCO3 21 mmol/L (18.4-26.8); Cord Venous Blood PCO2 42 mmHg (30.4-57.2); Cord Venous Blood PO2 38 mmHg (14.1-43.3); Cord Venous Blood pH 7.31 (7.20-7.44); O2 Saturation Cord Venous Bld 74.5 % (<68)
--- NOTE | 2022-04-27 16:30 | Anesthesia Procedure Note ---
Date of Service April 27, 2022 Anesthesia Post Epidural Note Vital Signs Vital Signs: Temp Pulse Resp BP Pulse Ox 37 C 68 20 102/55 L 97 04/27/22 15:49 04/27/22 16:25 04/27/22 16:05 04/27/22 16:19 04/27/22 16:25 Pain Intensity Abdomen: Pain Intensity: 3 Notes Mental Status: alert / awake / arousable and participated in evaluation Nausea / Vomiting: adequately controlled Pain: adequately controlled Airway Patency, RR, SpO2: stable & adequate BP & HR: stable & adequate Hydration State: stable & adequate Neuraxial Anesthesia: was administered and sensory block is resolving Anesthetic Complications: no major complications apparent and Pt Satisfied with anesthetic care Epidural: Removed without complications and With tip intact
[2022-04-27] MEDS: ACETAMINOPHEN 325 MG TAB PO PRN (18:21)
[2022-04-27] MEDS: BENZOCAINE 20% AER SPR 82.5 GM CAN EXT PRN (18:21)
[2022-04-27] MEDS: IBUPROFEN 600 MG TAB PO PRN (20:55)
[2022-04-27] MEDS: DOCUSATE SODIUM 100 MG CAP PO SCH (20:55)
[2022-04-27] MEDS ORDERED: NON-FORMULARY MEDICATION (Insulin Nph Isoph U-100 Human [Novolin N Flexpen] 100 unit/mL (3 SQ SCH (21:00)
[2022-04-28] MEDS: ACETAMINOPHEN 325 MG TAB PO PRN (00:36)
[2022-04-28 06:57] LABS: Hematocrit (blood only) 25.7 % (34.1-44.9); Hemoglobin 8.9 g/dl (12.0-16.0); Mean Corpuscular Hemoglobin 31.8 pg (25.0-34.0); Mean Corpuscular Hgb Conc 34.6 g/dL (32.0-36.0); Mean Corpuscular Volume 91.8 fL (80.0-100.0); Mean Platelet Volume 9.5 fL (9.4-12.3); Platelet Count 176 K/uL (130-400); RDW Coefficient of Variation 12.2 % (11.5-14.5); RDW Standard Deviation 41.1 fL (36.4-46.3); White Blood Count 11.62 K/ul (4.8-10.8)
[2022-04-28] MEDS: PRENATAL VITAMIN 1 TAB PO SCH (08:28)
[2022-04-28] MEDS: FERROUS SULFATE 325 MG TAB PO SCH (08:28)
[2022-04-28] MEDS: DOCUSATE SODIUM 100 MG CAP PO SCH ×2 (08:28→20:21)
[2022-04-28] MEDS: CHOLECALCIFEROL 1,000 UNITS 25 MCG TAB PO SCH (08:29)
[2022-04-28] MEDS: CALCIUM 600MG + VIT D 400 IU TAB PO SCH (08:29)
[2022-04-28] MEDS: OMEGA-3 (PURIFIED FISH OIL) 1 GM CAP PO SCH (08:29)
--- NOTE | 2022-04-28 08:55 | Obstetrical Progress Note ---
Date of Service April 28, 2022 Assessment & Plan Admission and Anticipated Discharge Date Admission Date: April 26, 2022 Subjective Patient is seen and examined. She feels well, no complaints. Ambulating without dizziness Voiding without difficulty Tolerating regular diet with out N&V Bleeding is minimal No fever/ chills/ CP/ SOB/ N&V/ Leg pain Pumping and plans to breast feed Baby was transferred to [facility], on CPAP Vital Signs Temp Pulse Resp BP Pulse Ox O2 Del Method 04/28/22 04:25 36.6 C 74 16 94/58 L 98 Room Air 04/28/22 00:30 36.4 C L 70 17 94/61 L 98 Room Air Lab Results 04/26/22 04/26/22 04/26/22 Range/Units 10:10 10:10 10:30 WBC 6.98 (4.8-10.8) K/ul RBC 3.83 L (3.93-5.22) M/uL Hgb 12.1 (12.0-16.0) g/dl Hct 34.5 (34.1-44.9) % MCV 90.1 (80.0-100.0) fL MCH 31.6 (25.0-34.0) pg MCHC 35.1 (32.0-36.0) g/dL RDW Std Deviation 39.4 (36.4-46.3) fL RDW Coeff of Chrissy 12.1 (11.5-14.5) % Plt Count 249 (130-400) K/uL MPV 9.6 (9.4-12.3) fL Cord ABG pH (7.1-7.38) Cord ABG pCO2 (39.1-73.5) mmHg Cord ABG pO2 (4.1-31.7) mmHg Cord ABG HCO3 (19.7-28.5) mmol/L Cord ABG Base Excess (-9-1.8) mEq/L Cord ABG O2 Sat (<60) % Cord VBG pH (7.20-7.44) Cord VBG pCO2 (30.4-57.2) mmHg Cord VBG pO2 (14.1-43.3) mmHg Cord VBG HCO3 (18.4-26.8) mmol/L Cord VBG Base Excess (-7.7-1.9) mEq/L Cord VBG O2 Sat (<68) % Blood Gas Comments POC Glucose (70-99) mg/dl Hep Bs Antigen NON-REACTIVE (NON-REACTIVE) Hep Bs Ag Confirmation TNP Hepatitis C Ab (EIA) NON-REACTIVE (NON-REACTIVE) Hep C Ab Signal/Cutoff 0.02 (<1.00) SARS-CoV-2, RNA, NAAT NEGATIVE (NEGATIVE) 04/26/22 04/26/22 04/26/22 Range/Units 14:50 16:21 17:20 WBC (4.8-10.8) K/ul RBC (3.93-5.22) M/uL Hgb (12.0-16.0) g/dl Hct (34.1-44.9) % MCV (80.0-100.0) fL MCH (25.0-34.0) pg MCHC (32.0-36.0) g/dL RDW Std Deviation (36.4-46.3) fL RDW Coeff of Chrissy (11.5-14.5) % Plt Count (130-400) K/uL MPV (9.4-12.3) fL Cord ABG pH (7.1-7.38) Cord ABG pCO2 (39.1-73.5) mmHg Cord ABG pO2 (4.1-31.7) mmHg Cord ABG HCO3 (19.7-28.5) mmol/L Cord ABG Base Excess (-9-1.8) mEq/L Cord ABG O2 Sat (<60) % Cord VBG pH (7.20-7.44) Cord VBG pCO2 (30.4-57.2) mmHg Cord VBG pO2 (14.1-43.3) mmHg Cord VBG HCO3 (18.4-26.8) mmol/L Cord VBG Base Excess (-7.7-1.9) mEq/L Cord VBG O2 Sat (<68) % Blood Gas Comments POC Glucose 155 H 72 66 L* (70-99) mg/dl Hep Bs Antigen (NON-REACTIVE) Hep Bs Ag Confirmation Hepatitis C Ab (EIA) (NON-REACTIVE) Hep C Ab Signal/Cutoff (<1.00) SARS-CoV-2, RNA, NAAT (NEGATIVE) 04/26/22 04/26/22 04/26/22 Range/Units 18:18 19:18 20:16 WBC (4.8-10.8) K/ul RBC (3.93-5.22) M/uL Hgb (12.0-16.0) g/dl Hct (34.1-44.9) % MCV (80.0-100.0) fL MCH (25.0-34.0) pg MCHC (32.0-36.0) g/dL RDW Std Deviation (36.4-46.3) fL RDW Coeff of Chrissy (11.5-14.5) % Plt Count (130-400) K/uL MPV (9.4-12.3) fL Cord ABG pH (7.1-7.38) Cord ABG pCO2 (39.1-73.5) mmHg Cord ABG pO2 (4.1-31.7) mmHg Cord ABG HCO3 (19.7-28.5) mmol/L Cord ABG Base Excess (-9-1.8) mEq/L Cord ABG O2 Sat (<60) % Cord VBG pH (7.20-7.44) Cord VBG pCO2 (30.4-57.2) mmHg Cord VBG pO2 (14.1-43.3) mmHg Cord VBG HCO3 (18.4-26.8) mmol/L Cord VBG Base Excess (-7.7-1.9) mEq/L Cord VBG O2 Sat (<68) % Blood Gas Comments POC Glucose 78 80 96 (70-99) mg/dl Hep Bs Antigen (NON-REACTIVE) Hep Bs Ag Confirmation Hepatitis C Ab (EIA) (NON-REACTIVE) Hep C Ab Signal/Cutoff (<1.00) SARS-CoV-2, RNA, NAAT (NEGATIVE) 04/26/22 04/26/22 04/26/22 Range/Units 21:09 22:17 23:10 WBC (4.8-10.8) K/ul RBC (3.93-5.22) M/uL Hgb (12.0-16.0) g/dl Hct (34.1-44.9) % MCV (80.0-100.0) fL MCH (25.0-34.0) pg MCHC (32.0-36.0) g/dL RDW Std Deviation (36.4-46.3) fL RDW Coeff of Chrissy (11.5-14.5) % Plt Count (130-400) K/uL MPV (9.4-12.3) fL Cord ABG pH (7.1-7.38) Cord ABG pCO2 (39.1-73.5) mmHg Cord ABG pO2 (4.1-31.7) mmHg Cord ABG HCO3 (19.7-28.5) mmol/L Cord ABG Base Excess (-9-1.8) mEq/L Cord ABG O2 Sat (<60) % Cord VBG pH (7.20-7.44) Cord VBG pCO2 (30.4-57.2) mmHg Cord VBG pO2 (14.1-43.3) mmHg Cord VBG HCO3 (18.4-26.8) mmol/L Cord VBG Base Excess (-7.7-1.9) mEq/L Cord VBG O2 Sat (<68) % Blood Gas Comments POC Glucose 84 77 81 (70-99) mg/dl Hep Bs Antigen (NON-REACTIVE) Hep Bs Ag Confirmation Hepatitis C Ab (EIA) (NON-REACTIVE) Hep C Ab Signal/Cutoff (<1.00) SARS-CoV-2, RNA, NAAT (NEGATIVE) 04/27/22 04/27/22 04/27/22 Range/Units 00:17 02:31 04:18 WBC (4.8-10.8) K/ul RBC (3.93-5.22) M/uL Hgb (12.0-16.0) g/dl Hct (34.1-44.9) % MCV (80.0-100.0) fL MCH (25.0-34.0) pg MCHC (32.0-36.0) g/dL RDW Std Deviation (36.4-46.3) fL RDW Coeff of Chrissy (11.5-14.5) % Plt Count (130-400) K/uL MPV (9.4-12.3) fL Cord ABG pH (7.1-7.38) Cord ABG pCO2 (39.1-73.5) mmHg Cord ABG pO2 (4.1-31.7) mmHg Cord ABG HCO3 (19.7-28.5) mmol/L Cord ABG Base Excess (-9-1.8) mEq/L Cord ABG O2 Sat (<60) % Cord VBG pH (7.20-7.44) Cord VBG pCO2 (30.4-57.2) mmHg Cord VBG pO2 (14.1-43.3) mmHg Cord VBG HCO3 (18.4-26.8) mmol/L Cord VBG Base Excess (-7.7-1.9) mEq/L Cord VBG O2 Sat (<68) % Blood Gas Comments POC Glucose 90 86 90 (70-99) mg/dl Hep Bs Antigen (NON-REACTIVE) Hep Bs Ag Confirmation Hepatitis C Ab (EIA) (NON-REACTIVE) Hep C Ab Signal/Cutoff (<1.00) SARS-CoV-2, RNA, NAAT (NEGATIVE) 04/27/22 04/27/22 04/27/22 Range/Units 05:20 07:10 09:13 WBC (4.8-10.8) K/ul RBC (3.93-5.22) M/uL Hgb (12.0-16.0) g/dl Hct (34.1-44.9) % MCV (80.0-100.0) fL MCH (25.0-34.0) pg MCHC (32.0-36.0) g/dL RDW Std Deviation (36.4-46.3) fL RDW Coeff of Chrissy (11.5-14.5) % Plt Count (130-400) K/uL MPV (9.4-12.3) fL Cord ABG pH (7.1-7.38) Cord ABG pCO2 (39.1-73.5) mmHg Cord ABG pO2 (4.1-31.7) mmHg Cord ABG HCO3 (19.7-28.5) mmol/L Cord ABG Base Excess (-9-1.8) mEq/L Cord ABG O2 Sat (<60) % Cord VBG pH (7.20-7.44) Cord VBG pCO2 (30.4-57.2) mmHg Cord VBG pO2 (14.1-43.3) mmHg Cord VBG HCO3 (18.4-26.8) mmol/L Cord VBG Base Excess (-7.7-1.9) mEq/L Cord VBG O2 Sat (<68) % Blood Gas Comments POC Glucose 90 94 97 (70-99) mg/dl Hep Bs Antigen (NON-REACTIVE) Hep Bs Ag Confirmation Hepatitis C Ab (EIA) (NON-REACTIVE) Hep C Ab Signal/Cutoff (<1.00) SARS-CoV-2, RNA, NAAT (NEGATIVE) 04/27/22 04/27/22 04/27/22 Range/Units 11:14 13:07 15:21 WBC (4.8-10.8) K/ul RBC (3.93-5.22) M/uL Hgb (12.0-16.0) g/dl Hct (34.1-44.9) % MCV (80.0-100.0) fL MCH (25.0-34.0) pg MCHC (32.0-36.0) g/dL RDW Std Deviation (36.4-46.3) fL RDW Coeff of Chrissy (11.5-14.5) % Plt Count (130-400) K/uL MPV (9.4-12.3) fL Cord ABG pH 7.31 (7.1-7.38) Cord ABG pCO2 37 L (39.1-73.5) mmHg Cord ABG pO2 36 H (4.1-31.7) mmHg Cord ABG HCO3 19 L (19.7-28.5) mmol/L Cord ABG Base Excess -7.0 (-9-1.8) mEq/L Cord ABG O2 Sat 76.3 H (<60) % Cord VBG pH (7.20-7.44) Cord VBG pCO2 (30.4-57.2) mmHg Cord VBG pO2 (14.1-43.3) mmHg Cord VBG HCO3 (18.4-26.8) mmol/L Cord VBG Base Excess (-7.7-1.9) mEq/L Cord VBG O2 Sat (<68) % Blood Gas Comments [facility] P[facility] Glucose 99 126 H (70-99) mg/dl Hep Bs Antigen (NON-REACTIVE) Hep Bs Ag Confirmation Hepatitis C Ab (EIA) (NON-REACTIVE) Hep C Ab Signal/Cutoff (<1.00) SARS-CoV-2, RNA, NAAT (NEGATIVE) 04/27/22 04/28/22 Range/Units 15:21 06:40 WBC 11.62 H (4.8-10.8) K/ul RBC 2.80 L (3.93-5.22) M/uL Hgb 8.9 L D (12.0-16.0) g/dl Hct 25.7 L (34.1-44.9) % MCV 91.8 (80.0-100.0) fL MCH 31.8 (25.0-34.0) pg MCHC 34.6 (32.0-36.0) g/dL RDW Std Deviation 41.1 (36.4-46.3) fL RDW Coeff of Chrissy 12.2 (11.5-14.5) % Plt Count 176 (130-400) K/uL MPV 9.5 (9.4-12.3) fL Cord ABG pH (7.1-7.38) Cord ABG pCO2 (39.1-73.5) mmHg Cord ABG pO2 (4.1-31.7) mmHg Cord ABG HCO3 (19.7-28.5) mmol/L Cord ABG Base Excess (-9-1.8) mEq/L Cord ABG O2 Sat (<60) % Cord VBG pH 7.31 (7.20-7.44) Cord VBG pCO2 42 (30.4-57.2) mmHg Cord VBG pO2 38 (14.1-43.3) mmHg Cord VBG HCO3 21 (18.4-26.8) mmol/L Cord VBG Base Excess -5.0 (-7.7-1.9) mEq/L Cord VBG O2 Sat 74.5 H (<68) % Blood Gas Comments [facility] POC Glucose (70-99) mg/dl Hep Bs Antigen (NON-REACTIVE) Hep Bs Ag Confirmation Hepatitis C Ab (EIA) (NON-REACTIVE) Hep C Ab Signal/Cutoff (<1.00) SARS-CoV-2, RNA, NAAT (NEGATIVE) PE: General: Alert, orientedx3, NAD Abd: soft, NT, fundus firm, below Umbilicus Perineum intact, Lochia rubra minimal Ext; NT, no edema AP: 32 yo s/p , ppd# 1 VSS Afebrile doing well Anemic: will give IV iron and continue with PO iron Continue routine care All questions were answered Possible D/C this afternoon to visit baby in [place] Results & Data ([facility]) Vital Signs (Past 12 Hours) Vital Signs Temp Pulse Resp BP Pulse Ox O2 Del Method 04/28/22 04:25 36.6 C 74 16 94/58 L 98 Room Air 04/28/22 00:30 36.4 C L 70 17 94/61 L 98 Room Air
[2022-04-28] MEDS ORDERED: NON-FORMULARY MEDICATION (Prenat.Vits,Cal,Min-Iron-Folic tablet) PO SCH (09:00)
[2022-04-28] MEDS ORDERED: IRON SUCROSE 200 MG in 0.9 % SODIUM CHLORIDE 100 ML IV ONE (09:00)
[2022-04-28] MEDS ORDERED: MEASLES, MUMPS & RUBELLA VIRUS VIAL SQ ONE (10:04)
[2022-04-28] MEDS: IBUPROFEN 600 MG TAB PO PRN ×2 (14:43→20:21)
[2022-04-28] MEDS ORDERED: METHYLERGONOVINE MALEATE 0.2 MG TAB PO SCH (18:55)
[2022-04-28 19:20] LABS: Basophils # (auto) 0.02 K/uL (0-0.2); Basophils % (auto) 0.2 %; Eosinophils # (auto) 0.11 K/uL (0-0.50); Hematocrit (blood only) 27.8 % (34.1-44.9); Hemoglobin 9.5 g/dl (12.0-16.0); Immature Granulocytes # (auto) 0.05 K/uL (0.00-0.02); Immature Granulocytes % (auto) 0.4 %; Lymphocytes # (auto) 2.43 K/uL (1.2-3.4); Lymphocytes % (auto) 21.4 %; Mean Corpuscular Hemoglobin 31.3 pg (25.0-34.0); Mean Corpuscular Hgb Conc 34.2 g/dL (32.0-36.0); Mean Corpuscular Volume 91.4 fL (80.0-100.0); Mean Platelet Volume 9.5 fL (9.4-12.3); Monocytes # (auto) 0.58 K/uL (0.24-0.82); Monocytes % (auto) 5.1 %; Neutrophils # (auto) 8.17 K/uL (1.4-6.5); Neutrophils % (auto) 71.9 %; Platelet Count 231 K/uL (130-400); RDW Coefficient of Variation 12.5 % (11.5-14.5); RDW Standard Deviation 41.5 fL (36.4-46.3); Red Blood Count 3.04 M/uL (3.93-5.22); White Blood Count 11.36 K/ul (4.8-10.8)
[2022-04-28] MEDS ORDERED: bisacodyL 5 MG TABEC PO SCH (20:00)
[2022-04-28] MEDS: BENZOCAINE 20% AER SPR 82.5 GM CAN EXT PRN (20:20)
[2022-04-29] MEDS: METHYLERGONOVINE MALEATE 0.2 MG TAB PO SCH ×3 (01:40→09:54)
--- NOTE | 2022-04-29 01:41 | Obstetrical Progress Note ---
Date of Service April 29, 2022 Assessment & Plan Admission and Anticipated Discharge Date Admission Date: April 26, 2022 Subjective Patient is seen and examined. She feels well, no complaints. Ambulating without dizziness Voiding without difficulty Tolerating regular diet with out N&V Bleeding is minimal No fever/ chills/ CP/ SOB/ N&V/ Leg pain Pumping to breast feed Baby in NICU/ [facility] Wants to leave early to see her baby. Vital Signs Temp Pulse Pulse Resp BP Pulse Ox O2 Del Method 04/28/22 20:28 36.9 C 82 18 96/63 L 04/28/22 13:00 36.5 C 86 16 116/86 Room Air 04/28/22 09:05 36.5 C 76 16 101/68 Room Air 04/28/22 04:25 36.6 C 74 16 94/58 L 98 Room Air Intake and Output 04/28/22 04/28/22 04/29/22 14:59 22:59 06:59 Intake Total 110 / 110 Balance 110 / 110 Intake: IV 110 / 110 Iron Sucrose 200 mg In 0.9 % 110 / 110 Sodium Chloride 100 ml @ 220 mls/hr IV ONE ONE Rx#:[id number] Lab Results 04/26/22 04/26/22 04/26/22 Range/Units 10:10 10:10 10:30 WBC 6.98 (4.8-10.8) K/ul RBC 3.83 L (3.93-5.22) M/uL Hgb 12.1 (12.0-16.0) g/dl Hct 34.5 (34.1-44.9) % MCV 90.1 (80.0-100.0) fL MCH 31.6 (25.0-34.0) pg MCHC 35.1 (32.0-36.0) g/dL RDW Std Deviation 39.4 (36.4-46.3) fL RDW Coeff of Chrissy 12.1 (11.5-14.5) % Plt Count 249 (130-400) K/uL MPV 9.6 (9.4-12.3) fL Immature Gran % (Auto) % Neut % (Auto) % Lymph % (Auto) % Craven % (Auto) % Eos % (Auto) % Baso % (Auto) % Neut # (Auto) (1.4-6.5) K/uL Lymph # (Auto) (1.2-3.4) K/uL Craven # (Auto) (0.24-0.82) K/uL Eos # (Auto) (0-0.50) K/uL Baso # (Auto) (0-0.2) K/uL Immature Gran # (Auto) (0.00-0.02) K/uL Cord ABG pH (7.1-7.38) Cord ABG pCO2 (39.1-73.5) mmHg Cord ABG pO2 (4.1-31.7) mmHg Cord ABG HCO3 (19.7-28.5) mmol/L Cord ABG Base Excess (-9-1.8) mEq/L Cord ABG O2 Sat (<60) % Cord VBG pH (7.20-7.44) Cord VBG pCO2 (30.4-57.2) mmHg Cord VBG pO2 (14.1-43.3) mmHg Cord VBG HCO3 (18.4-26.8) mmol/L Cord VBG Base Excess (-7.7-1.9) mEq/L Cord VBG O2 Sat (<68) % Blood Gas Comments POC Glucose (70-99) mg/dl Hep Bs Antigen NON-REACTIVE (NON-REACTIVE) Hep Bs Ag Confirmation TNP Hepatitis C Ab (EIA) NON-REACTIVE (NON-REACTIVE) Hep C Ab Signal/Cutoff 0.02 (<1.00) SARS-CoV-2, RNA, NAAT NEGATIVE (NEGATIVE) 04/26/22 04/26/22 04/26/22 Range/Units 14:50 16:21 17:20 WBC (4.8-10.8) K/ul RBC (3.93-5.22) M/uL Hgb (12.0-16.0) g/dl Hct (34.1-44.9) % MCV (80.0-100.0) fL MCH (25.0-34.0) pg MCHC (32.0-36.0) g/dL RDW Std Deviation (36.4-46.3) fL RDW Coeff of Chrissy (11.5-14.5) % Plt Count (130-400) K/uL MPV (9.4-12.3) fL Immature Gran % (Auto) % Neut % (Auto) % Lymph % (Auto) % Craven % (Auto) % Eos % (Auto) % Baso % (Auto) % Neut # (Auto) (1.4-6.5) K/uL Lymph # (Auto) (1.2-3.4) K/uL Craven # (Auto) (0.24-0.82) K/uL Eos # (Auto) (0-0.50) K/uL Baso # (Auto) (0-0.2) K/uL Immature Gran # (Auto) (0.00-0.02) K/uL Cord ABG pH (7.1-7.38) Cord ABG pCO2 (39.1-73.5) mmHg Cord ABG pO2 (4.1-31.7) mmHg Cord ABG HCO3 (19.7-28.5) mmol/L Cord ABG Base Excess (-9-1.8) mEq/L Cord ABG O2 Sat (<60) % Cord VBG pH (7.20-7.44) Cord VBG pCO2 (30.4-57.2) mmHg Cord VBG pO2 (14.1-43.3) mmHg Cord VBG HCO3 (18.4-26.8) mmol/L Cord VBG Base Excess (-7.7-1.9) mEq/L Cord VBG O2 Sat (<68) % Blood Gas Comments POC Glucose 155 H 72 66 L* (70-99) mg/dl Hep Bs Antigen (NON-REACTIVE) Hep Bs Ag Confirmation Hepatitis C Ab (EIA) (NON-REACTIVE) Hep C Ab Signal/Cutoff (<1.00) SARS-CoV-2, RNA, NAAT (NEGATIVE) 04/26/22 04/26/22 04/26/22 Range/Units 18:18 19:18 20:16 WBC (4.8-10.8) K/ul RBC (3.93-5.22) M/uL Hgb (12.0-16.0) g/dl Hct (34.1-44.9) % MCV (80.0-100.0) fL MCH (25.0-34.0) pg MCHC (32.0-36.0) g/dL RDW Std Deviation (36.4-46.3) fL RDW Coeff of Chrissy (11.5-14.5) % Plt Count (130-400) K/uL MPV (9.4-12.3) fL Immature Gran % (Auto) % Neut % (Auto) % Lymph % (Auto) % Craven % (Auto) % Eos % (Auto) % Baso % (Auto) % Neut # (Auto) (1.4-6.5) K/uL Lymph # (Auto) (1.2-3.4) K/uL Craven # (Auto) (0.24-0.82) K/uL Eos # (Auto) (0-0.50) K/uL Baso # (Auto) (0-0.2) K/uL Immature Gran # (Auto) (0.00-0.02) K/uL Cord ABG pH (7.1-7.38) Cord ABG pCO2 (39.1-73.5) mmHg Cord ABG pO2 (4.1-31.7) mmHg Cord ABG HCO3 (19.7-28.5) mmol/L Cord ABG Base Excess (-9-1.8) mEq/L Cord ABG O2 Sat (<60) % Cord VBG pH (7.20-7.44) Cord VBG pCO2 (30.4-57.2) mmHg Cord VBG pO2 (14.1-43.3) mmHg Cord VBG HCO3 (18.4-26.8) mmol/L Cord VBG Base Excess (-7.7-1.9) mEq/L Cord VBG O2 Sat (<68) % Blood Gas Comments POC Glucose 78 80 96 (70-99) mg/dl Hep Bs Antigen (NON-REACTIVE) Hep Bs Ag Confirmation Hepatitis C Ab (EIA) (NON-REACTIVE) Hep C Ab Signal/Cutoff (<1.00) SARS-CoV-2, RNA, NAAT (NEGATIVE) 04/26/22 04/26/22 04/26/22 Range/Units 21:09 22:17 23:10 WBC (4.8-10.8) K/ul RBC (3.93-5.22) M/uL Hgb (12.0-16.0) g/dl Hct (34.1-44.9) % MCV (80.0-100.0) fL MCH (25.0-34.0) pg MCHC (32.0-36.0) g/dL RDW Std Deviation (36.4-46.3) fL RDW Coeff of Chrissy (11.5-14.5) % Plt Count (130-400) K/uL MPV (9.4-12.3) fL Immature Gran % (Auto) % Neut % (Auto) % Lymph % (Auto) % Craven % (Auto) % Eos % (Auto) % Baso % (Auto) % Neut # (Auto) (1.4-6.5) K/uL Lymph # (Auto) (1.2-3.4) K/uL Craven # (Auto) (0.24-0.82) K/uL Eos # (Auto) (0-0.50) K/uL Baso # (Auto) (0-0.2) K/uL Immature Gran # (Auto) (0.00-0.02) K/uL Cord ABG pH (7.1-7.38) Cord ABG pCO2 (39.1-73.5) mmHg Cord ABG pO2 (4.1-31.7) mmHg Cord ABG HCO3 (19.7-28.5) mmol/L Cord ABG Base Excess (-9-1.8) mEq/L Cord ABG O2 Sat (<60) % Cord VBG pH (7.20-7.44) Cord VBG pCO2 (30.4-57.2) mmHg Cord VBG pO2 (14.1-43.3) mmHg Cord VBG HCO3 (18.4-26.8) mmol/L Cord VBG Base Excess (-7.7-1.9) mEq/L Cord VBG O2 Sat (<68) % Blood Gas Comments POC Glucose 84 77 81 (70-99) mg/dl Hep Bs Antigen (NON-REACTIVE) Hep Bs Ag Confirmation Hepatitis C Ab (EIA) (NON-REACTIVE) Hep C Ab Signal/Cutoff (<1.00) SARS-CoV-2, RNA, NAAT (NEGATIVE) 04/27/22 04/27/22 04/27/22 Range/Units 00:17 02:31 04:18 WBC (4.8-10.8) K/ul RBC (3.93-5.22) M/uL Hgb (12.0-16.0) g/dl Hct (34.1-44.9) % MCV (80.0-100.0) fL MCH (25.0-34.0) pg MCHC (32.0-36.0) g/dL RDW Std Deviation (36.4-46.3) fL RDW Coeff of Chrissy (11.5-14.5) % Plt Count (130-400) K/uL MPV (9.4-12.3) fL Immature Gran % (Auto) % Neut % (Auto) % Lymph % (Auto) % Craven % (Auto) % Eos % (Auto) % Baso % (Auto) % Neut # (Auto) (1.4-6.5) K/uL Lymph # (Auto) (1.2-3.4) K/uL Craven # (Auto) (0.24-0.82) K/uL Eos # (Auto) (0-0.50) K/uL Baso # (Auto) (0-0.2) K/uL Immature Gran # (Auto) (0.00-0.02) K/uL Cord ABG pH (7.1-7.38) Cord ABG pCO2 (39.1-73.5) mmHg Cord ABG pO2 (4.1-31.7) mmHg Cord ABG HCO3 (19.7-28.5) mmol/L Cord ABG Base Excess (-9-1.8) mEq/L Cord ABG O2 Sat (<60) % Cord VBG pH (7.20-7.44) Cord VBG pCO2 (30.4-57.2) mmHg Cord VBG pO2 (14.1-43.3) mmHg Cord VBG HCO3 (18.4-26.8) mmol/L Cord VBG Base Excess (-7.7-1.9) mEq/L Cord VBG O2 Sat (<68) % Blood Gas Comments POC Glucose 90 86 90 (70-99) mg/dl Hep Bs Antigen (NON-REACTIVE) Hep Bs Ag Confirmation Hepatitis C Ab (EIA) (NON-REACTIVE) Hep C Ab Signal/Cutoff (<1.00) SARS-CoV-2, RNA, NAAT (NEGATIVE) 04/27/22 04/27/22 04/27/22 Range/Units 05:20 07:10 09:13 WBC (4.8-10.8) K/ul RBC (3.93-5.22) M/uL Hgb (12.0-16.0) g/dl Hct (34.1-44.9) % MCV (80.0-100.0) fL MCH (25.0-34.0) pg MCHC (32.0-36.0) g/dL RDW Std Deviation (36.4-46.3) fL RDW Coeff of Chrissy (11.5-14.5) % Plt Count (130-400) K/uL MPV (9.4-12.3) fL Immature Gran % (Auto) % Neut % (Auto) % Lymph % (Auto) % Craven % (Auto) % Eos % (Auto) % Baso % (Auto) % Neut # (Auto) (1.4-6.5) K/uL Lymph # (Auto) (1.2-3.4) K/uL Craven # (Auto) (0.24-0.82) K/uL Eos # (Auto) (0-0.50) K/uL Baso # (Auto) (0-0.2) K/uL Immature Gran # (Auto) (0.00-0.02) K/uL Cord ABG pH (7.1-7.38) Cord ABG pCO2 (39.1-73.5) mmHg Cord ABG pO2 (4.1-31.7) mmHg Cord ABG HCO3 (19.7-28.5) mmol/L Cord ABG Base Excess (-9-1.8) mEq/L Cord ABG O2 Sat (<60) % Cord VBG pH (7.20-7.44) Cord VBG pCO2 (30.4-57.2) mmHg Cord VBG pO2 (14.1-43.3) mmHg Cord VBG HCO3 (18.4-26.8) mmol/L Cord VBG Base Excess (-7.7-1.9) mEq/L Cord VBG O2 Sat (<68) % Blood Gas Comments POC Glucose 90 94 97 (70-99) mg/dl Hep Bs Antigen (NON-REACTIVE) Hep Bs Ag Confirmation Hepatitis C Ab (EIA) (NON-REACTIVE) Hep C Ab Signal/Cutoff (<1.00) SARS-CoV-2, RNA, NAAT (NEGATIVE) 04/27/22 04/27/22 04/27/22 Range/Units 11:14 13:07 15:21 WBC (4.8-10.8) K/ul RBC (3.93-5.22) M/uL Hgb (12.0-16.0) g/dl Hct (34.1-44.9) % MCV (80.0-100.0) fL MCH (25.0-34.0) pg MCHC (32.0-36.0) g/dL RDW Std Deviation (36.4-46.3) fL RDW Coeff of Chrissy (11.5-14.5) % Plt Count (130-400) K/uL MPV (9.4-12.3) fL Immature Gran % (Auto) % Neut % (Auto) % Lymph % (Auto) % Craven % (Auto) % Eos % (Auto) % Baso % (Auto) % Neut # (Auto) (1.4-6.5) K/uL Lymph # (Auto) (1.2-3.4) K/uL Craven # (Auto) (0.24-0.82) K/uL Eos # (Auto) (0-0.50) K/uL Baso # (Auto) (0-0.2) K/uL Immature Gran # (Auto) (0.00-0.02) K/uL Cord ABG pH 7.31 (7.1-7.38) Cord ABG pCO2 37 L (39.1-73.5) mmHg Cord ABG pO2 36 H (4.1-31.7) mmHg Cord ABG HCO3 19 L (19.7-28.5) mmol/L Cord ABG Base Excess -7.0 (-9-1.8) mEq/L Cord ABG O2 Sat 76.3 H (<60) % Cord VBG pH (7.20-7.44) Cord VBG pCO2 (30.4-57.2) mmHg Cord VBG pO2 (14.1-43.3) mmHg Cord VBG HCO3 (18.4-26.8) mmol/L Cord VBG Base Excess (-7.7-1.9) mEq/L Cord VBG O2 Sat (<68) % Blood Gas Comments BASILIO POC Glucose 99 126 H (70-99) mg/dl Hep Bs Antigen (NON-REACTIVE) Hep Bs Ag Confirmation Hepatitis C Ab (EIA) (NON-REACTIVE) Hep C Ab Signal/Cutoff (<1.00) SARS-CoV-2, RNA, NAAT (NEGATIVE) 04/27/22 04/28/22 04/28/22 Range/Units 15:21 06:40 19:01 WBC 11.62 H 11.36 H (4.8-10.8) K/ul RBC 2.80 L 3.04 L (3.93-5.22) M/uL Hgb 8.9 L D 9.5 L (12.0-16.0) g/dl Hct 25.7 L 27.8 L (34.1-44.9) % MCV 91.8 91.4 (80.0-100.0) fL MCH 31.8 31.3 (25.0-34.0) pg MCHC 34.6 34.2 (32.0-36.0) g/dL RDW Std Deviation 41.1 41.5 (36.4-46.3) fL RDW Coeff of Chrissy 12.2 12.5 (11.5-14.5) % Plt Count 176 231 (130-400) K/uL MPV 9.5 9.5 (9.4-12.3) fL Immature Gran % (Auto) 0.4 % Neut % (Auto) 71.9 % Lymph % (Auto) 21.4 % Craven % (Auto) 5.1 % Eos % (Auto) 1.0 % Baso % (Auto) 0.2 % Neut # (Auto) 8.17 H (1.4-6.5) K/uL Lymph # (Auto) 2.43 (1.2-3.4) K/uL Craven # (Auto) 0.58 (0.24-0.82) K/uL Eos # (Auto) 0.11 (0-0.50) K/uL Baso # (Auto) 0.02 (0-0.2) K/uL Immature Gran # (Auto) 0.05 H (0.00-0.02) K/uL Cord ABG pH (7.1-7.38) Cord ABG pCO2 (39.1-73.5) mmHg Cord ABG pO2 (4.1-31.7) mmHg Cord ABG HCO3 (19.7-28.5) mmol/L Cord ABG Base Excess (-9-1.8) mEq/L Cord ABG O2 Sat (<60) % Cord VBG pH 7.31 (7.20-7.44) Cord VBG pCO2 42 (30.4-57.2) mmHg Cord VBG pO2 38 (14.1-43.3) mmHg Cord VBG HCO3 21 (18.4-26.8) mmol/L Cord VBG Base Excess -5.0 (-7.7-1.9) mEq/L Cord VBG O2 Sat 74.5 H (<68) % Blood Gas Comments BASILIO POC Glucose (70-99) mg/dl Hep Bs Antigen (NON-REACTIVE) Hep Bs Ag Confirmation Hepatitis C Ab (EIA) (NON-REACTIVE) Hep C Ab Signal/Cutoff (<1.00) SARS-CoV-2, RNA, NAAT (NEGATIVE) PE: General: Alert, orientedx3, NAD Abd: soft, NT, fundus firm, below Umbilicus Perineum intact, Lochia rubra minimal Ext; NT, no edema AP: 32 yo s/p , ppd# 2 VSS Afebrile doing well Continue routine care All questions were answered D/C home after breakfast [employer] home pack [employer] bid All questions were answered. Results & Data ([facility]) Vital Signs (Past 12 Hours) Vital Signs Temp Pulse Resp BP 04/28/22 20:28 36.9 C 82 18 96/63 L
[2022-04-29] MEDS ORDERED: METHYLERGONOVINE MALEATE 0.2 MG TAB PO SCH (02:00)
[2022-04-29 07:05] LABS: Hematocrit (blood only) 27.9 % (34.1-44.9); Hemoglobin 9.7 g/dl (12.0-16.0)
[2022-04-29] MEDS: CHOLECALCIFEROL 1,000 UNITS 25 MCG TAB PO SCH (08:03)
[2022-04-29] MEDS: OMEGA-3 (PURIFIED FISH OIL) 1 GM CAP PO SCH (08:03)
[2022-04-29] MEDS: CALCIUM 600MG + VIT D 400 IU TAB PO SCH (08:03)
[2022-04-29] MEDS: DOCUSATE SODIUM 100 MG CAP PO SCH (08:04)
[2022-04-29] MEDS: PRENATAL VITAMIN 1 TAB PO SCH (08:04)
[2022-04-29] MEDS: FERROUS SULFATE 325 MG TAB PO SCH (08:04)
== END 2022-04-29 10:50 | disposition home or self-care (01) | DRG 807 ==
LOC: OPB 09:34 → 4S1 09:39 → 4E2 04-27 19:10